=== PATIENT | female | born 1975 | race Two or more races ===

== ENCOUNTER 2022-11-24 08:38 | Outpatient (CLI) | payer OTHER | END 2022-11-24 08:45 | disposition home or self-care (01) | LOC: SONOGRAMA 08:38 | PROVIDERS: ATTEND Pathology Anatomic Pathology | DX: D34 Benign neoplasm of thyroid gland (principal); D44.0 Neoplasm of uncertain behavior of thyroid gland; E07.9 Disorder of thyroid, unspecified; E04.9 Nontoxic goiter, unspecified ==

== ENCOUNTER 2023-05-14 09:17 | Outpatient (CLI) | payer OTHER | END 2023-05-14 09:19 | disposition home or self-care (01) | LOC: SONOGRAMA 09:17 | PROVIDERS: ATTEND Pathology Anatomic Pathology & Clinical Pathology | DX: E04.2 Nontoxic multinodular goiter (principal); D44.0 Neoplasm of uncertain behavior of thyroid gland ==